=== PATIENT | male | born 1990 | race Caucasian/White ===

== ENCOUNTER 2020-10-18 17:44 | Emergency (ER) | payer MEDICAID, OTHER ==
[~2020-10-18] VITALS: Ht 172.7 cm; Wt 59.0 kg
[2020-10-18 17:50] VITALS: BP_SYST 129
--- NOTE | 2020-10-18 17:50 | NUR ---
PT TO [facility] WITH LAW ENFORCEMENT FOR MEDICAL CLEARANCE. REPORT TO MARCELINA CEDENO.
--- NOTE | 2020-10-18 18:00 | NUR ---
Pt brought in by law enforcement for med clearance, pt in hallway, accompanied by officers, VSS.
--- NOTE | 2020-10-18 18:15 | NUR ---
ER at bedside examining patient.
[2020-10-18 18:26] VITALS: BP_SYST 129
--- NOTE | 2020-10-18 18:27 | NUR ---
Patient given written and verbal discharge instructions and verbalizes understanding. ER MD discussed with patient the results and treatment provided. Patient in stable condition. ID arm band removed. Patient educated on pain management and to follow up with PMD. Pain Scale 0/10. Opportunity for questions provided and answered. Medication side effect fact sheet provided.
== END 2020-10-18 18:26 ==
LOC: SED 17:44
DX: Z02.89 Encounter for other administrative examinations (principal); F15.90 Other stimulant use, unspecified, uncomplicated
CPT/HCPCS: 99283